=== PATIENT | female | born 1970 | race Caucasian/White ===

== ENCOUNTER → 2016-08-20 | Outpatient (CLI) | payer OTHER ==
--- NOTE | ~2016-08-20 | MY29 ---
[facility] A Service [facility] RADIOLOGY TEXT RESULTS PATIENT: WENDY IVERSON LOCATION: [facility] : 74 UNIT #: [id number] AGE: [address]: Joe Medrano MD SEX: F ORDER DR: [id number] [facility]. [place], [place] [address] [id number] O MR#: [id number] Acc #: [id number] NAME: WENDY IVERSON : 1970 SEX: F STUDY DATE/TIME: 08/20/2016 11:15 UNIT: [facility] ROOM: STUDY DESCRIPTION: MY NANDO SCREENING W/ CAD BILAT Attending Physician: Joe Medrano M.D. Referring Physician: Joe Medrano M.D. Ordering Physician: Joe Medrano M.D. Primary Care Physician: Joe Medrano M.D. MEDICAL IMAGING REPORT This report is preliminary unless electronic signature is present EXAM Digital screening mammogram with CAD INDICATIONS Routine screening. TECHNIQUE Bilateral CC and MLO views obtained on a digital mammography unit. FDA-approved CAD device utilized. COMPARISON 07/04/2015. FINDINGS Scattered fibroglandular density. No dominant mass or suspicious calcification. IMPRESSION Negative screening mammogram, screen interval 1 year suggested. BIRADS: 1 Negative. Patients over the age of 40 are entered into a reminder system with target due date for the next mammogram. A result letter will also be sent to the patient. Dictated by... Rashard Bach M.D. THIS IS AN ELECTRONICALLY VERIFIED REPORT Rashard Bach M.D. at 08/21/2016 7:12 AM [facility] A Service [facility] RADIOLOGY TEXT RESULTS PATIENT: WENDY IVERSON LOCATION: [facility] : 74 UNIT #: [id number] AGE: [address]: Joe Medrano MD SEX: F ORDER DR: JUANCARLOS/zoltan TD: 08/20/2016 19:28 JOB #: [id number] MEDICAL IMAGING REPORT Page 1 of 1 COPY
== END | disposition home or self-care (01) ==
LOC: CWCC 10:51
DX: Z12.31 Encounter for screening mammogram for malignant neoplasm of breast (principal)
CPT/HCPCS: G0202